=== PATIENT | male | born 1985 | race Caucasian/White ===

== ENCOUNTER 2022-03-23 09:36 | Emergency (ER) | payer OTHER ==
[2022-03-23] MEDS ORDERED: Boostrix 0.5 ML (Tdap) VIAL (>/=7 yrs of age) ONE (10:55)
[2022-03-23] MEDS ORDERED: HYDROcodone/Acetaminophen 10/325 mg Tablet ONE (10:55)
== END 2022-03-23 11:45 | disposition home or self-care (01) ==
LOC: CSHERS 09:36
DX: S61.211A Laceration without foreign body of left index finger without damage to nail, initial encounter (principal); Y92.009 Unspecified place in unspecified non-institutional (private) residence as the place of occurrence of the external cause; X58.XXXA Exposure to other specified factors, initial encounter; Z23 Encounter for immunization
CPT/HCPCS: 12002; 90471; 90715